=== PATIENT | male | born 1990 | race Two or more races ===

== ENCOUNTER 2019-12-06 08:13 | Emergency (ER) | payer OTHER ==
[~2019-12-06] VITALS: Ht 177.8 cm; Wt 70.3 kg
== END 2019-12-06 10:07 | disposition home or self-care (01) ==
LOC: ER 08:13
DX: S41.122A Laceration with foreign body of left upper arm, initial encounter (principal); W25.XXXA Contact with sharp glass, initial encounter; Y93.84 Activity, sleeping; Y92.013 Bedroom of single-family (private) house as the place of occurrence of the external cause; Y99.8 Other external cause status

== ENCOUNTER 2019-12-17 18:14 | Emergency (ER) | payer OTHER ==
[~2019-12-17] VITALS: Ht 177.8 cm; Wt 70.3 kg
== END 2019-12-17 19:38 | disposition home or self-care (01) ==
LOC: ER 18:14
DX: Z48.02 Encounter for removal of sutures (principal); T79.8XXA Other early complications of trauma, initial encounter; L03.114 Cellulitis of left upper limb; L03.124 Acute lymphangitis of left upper limb; S41.12 Laceration with foreign body of upper arm; X58.XXXS Exposure to other specified factors, sequela

== ENCOUNTER 2023-07-10 23:35 | Emergency (ER) | payer OTHER ==
[~2023-07-10] VITALS: Ht 170.2 cm; Wt 83.9 kg
[2023-07-10] MEDS ORDERED: CLONAZEPAM0.5 M1 (23:51)
[2023-07-10] MEDS ORDERED: SEROQUEL200 MG (23:51)
[2023-07-10] MEDS ORDERED: WELLBUTRIN SR100 MG (23:51)
[2023-07-10] MEDS ORDERED: PROZAC10 M1 (23:52)
[2023-07-11] MEDS ORDERED: CLINDAMYCIN PHOSPHATE 150 MG/ML (600mg) IM STA (03:34)
== END 2023-07-11 03:44 | disposition home or self-care (01) ==
LOC: ER 23:36
DX: R21 Rash and other nonspecific skin eruption (principal)